=== PATIENT | male | born 1980 ===

== ENCOUNTER 2016-12-20 | Emergency (ER) | payer OTHER ==
[~2016-12-20] MED LIST: ATARAX25 MG PO; ZANTAC150 MG PO
== END 2016-12-20 19:45 ==
DX: S16.1XXA Strain of muscle, fascia and tendon at neck level, initial encounter (principal); S09.90XA Unspecified injury of head, initial encounter; V49.40XA Driver injured in collision with unspecified motor vehicles in traffic accident, initial encounter; Y92.410 Unspecified street and highway as the place of occurrence of the external cause